=== PATIENT | female | born 1980 | race Caucasian/White ===

== ENCOUNTER 2016-03-13 10:04 | Emergency (ER) | payer SELFPAY ==
--- NOTE | 2016-03-13 10:47 | ED Physician Chart ---
Chief Complaint/HPI - Patient Information Date Seen:: 03/13/16 Time Seen:: 10:42 Chief Complaint:: htn History of Present Illness:: pt sent in from clinic for htn concerns. pt did not go to clinic for MOORE or CP or neuro changes. Pt went to clinic for complaint her fibromyalgia pains and muscle cramps are worse than usual for last 3-4 days and she is not sleeping much. she has tomasz on cyclobenzaprine 5mg qhs and did not run out. took last nt. also takes cymbalta which isnt helping either. under alot of stress about recent move from [place]. drove her in to dept today. hx of depression/anxiety Allergies:: Allergies Allergy/AdvReac Type Severity Reaction Status Date / Time No Known Allergies Allergy Verified 03/13/16 10:27 Vitals:: Vital Signs - 8 hr 03/13/16 10:29 Temp 98 F HR 103 RR 16 BP 140/110 Historian:: Patient Review of Systems - Review of Systems General/Constitutional: No fever, No chills, No weight loss, No weakness, No diaphoresis, No edema, No loss of appetite Skin: No skin lesions, No rash, No bruising Head: No headache, No light-headedness Eyes: No loss of vision, No pain, No diplopia ENT: No earache, No nasal drainage, No sore throat, No tinnitus Neck: No neck pain, No swelling, No thyromegaly, No stiffness, No mass noted Cardio Vascular: No chest pain, No palpitations, No PND, No orthopnea, No edema Pulmonary: No SOB, No cough, No sputum, No wheezing GI: No nausea, No vomiting, No diarrhea, No pain, No melena, No hematochezia, No constipation, No hematemesis G/U: No dysuria, No frequency, No hematuria Musculoskeletal: No bone or joint pain, Back pain, Muscle pain Endocrine: No polyuria, No polydipsia Psychiatric: Prior psych history, Depression, Anxiety, No suicidal ideation Hematopoietic: No bruising, No lymphadenopathy Allergic/Immuno: No urticaria, No angioedema Neurological: No syncope, No focal symptoms, No weakness, No paresthesia, No headache, No seizure, No dizziness, No confusion, No vertigo Past Medical History - Past Medical History Past Medical History: Other (fibromyalgia ?htn been borderline in past but dr never txd) Social History: Non Smoker, No Alcohol, No Drug Use Psychiatricy History: Depression, Other (anxiety) Medication: Reviewed Family Medical History - Family Member Mother Hx Family Hypertension: Yes Other Medical History: High Cholesterol Father Hx Family Cancer: Yes (Prostate) Physical Exam - Physical Examination General/Constitutional: Awake, Well-developed, well-nourished, Alert, No distress, GCS 15, Non-toxic appearing, Ambulatory Other Gen/Cons comments:: alert, tearful at times. good mobility. no neuro defecits. abd nt. no aaa. cv rrr no m. pulm cta b Head: Atraumatic Eyes: Lids, conjuctiva normal, PERRL, EOMI Skin: Nl inspection, No rash, No skin lesions, No ecchymosis, Well hydrated, No lymphadenopathy ENMT: External ears, nose nl, Nasal exam nl, Lips, teeth, gums nl Neck: Nontender, Full ROM w/o pain, No JVD, No nuchal rigidity, No bruit, No mass, No stridor Respiratory: Nl effort/Exclusion, Clear to Auscultation, No Wheeze/Rhonchi/Rales Cardio Vascular: RRR, No murmur, gallop, rubs, NL S1 S2 GI: No tenderness/rebounding/guarding, No organomegaly, No hernia, Normal BS's, Nondistended, No mass/bruits, No McBurney tenderness : No CVA tenderness Extremities: No tenderness or effusion, Full ROM, normal strength in all extremities, No edema, Normal digits & nails Neuro/Psych: Alert/oriented, DTR's symmetric, Normal sensory exam, Normal motor strength, Judgement/insight normal, Mood normal, Normal gait, No focal deficits Misc: normal gait, Normal back, No paraspinal tenderness Labs/Radiology/EKG Results - EKG Interpretations EKG Time:: 11:00 Rhythm: nsr [place]: 12 Rate: 84 Comments:: nsr 84, nrml st/t waves. wnl ED Septic Shock - . Is Septic Shock (SBP<90, OR Lactate>4 mmol\L) present?: No - <6hrs of presentation: Vital Signs: Vital Signs - 8 hr 03/13/16 10:29 Temp 98 F HR 103 RR 16 BP 140/110 Reassessment (Disposition) - Reassessment Reassessment Condition:: Improved - Diagnosis Diagnosis:: 1 htn 2 exacerbation of fibromyalgia pain - Aftercare/Follow up Instructions Aftercare/Follow-Up Instructions:: Counseled pt & family regarding lab results/ diagnosis & need follow up Medication Prescribed:: rx norco 5s no 15, lisinopril 10mg/d bp improved. pt feels ok. fu w pmd in few days. return if worse. - Patient Disposition Discharge/Transfer:: Home Condition at Disposition:: Improved
[2016-03-13] MEDS ORDERED: Hydrocodone/APAP 5mg/325mg Tab PO ONE (11:28)
[2016-03-13] MEDS ORDERED: Hydrocodone/APAP 5mg/325mg Tab ONE (11:32)
== END 2016-03-13 13:30 | disposition home or self-care (01) ==
LOC: ER 10:04
DX: I10 Essential (primary) hypertension (principal); M79.7 Fibromyalgia
CPT/HCPCS: 93005; Z7502